=== PATIENT | male | born 2000 | race Caucasian/White ===

== ENCOUNTER 2020-03-10 18:56 | Emergency (ER) | payer BC ==
[~2020-03-10] VITALS: Ht 172.7 cm; Wt 65.8 kg
[2020-03-10 22:08] VITALS: BP 133/77
== END 2020-03-10 22:24 | disposition home or self-care (01) ==
LOC: ER 18:56
DX: S63.501A Unspecified sprain of right wrist, initial encounter (principal); S60.211A Contusion of right wrist, initial encounter; V49.9XXA Car occupant (driver) (passenger) injured in unspecified traffic accident, initial encounter; Y93.89 Activity, other specified; Y92.89 Other specified places as the place of occurrence of the external cause; Y99.8 Other external cause status
CPT/HCPCS: 70450; 70486; 72125; 73110